=== PATIENT | male | born 1995 | race Caucasian/White ===

== ENCOUNTER 2018-12-18 01:44 | Emergency (ER) | payer SELFPAY ==
[~2018-12-18] VITALS: Ht 180.3 cm; Wt 86.4 kg
[2018-12-18 02:11] VITALS: BP 145/88; Ht 180.3 cm; Wt 86.4 kg
[2018-12-18 03:06] LABS: APPEARANCE CLEAR (CLEAR); BILIRUBIN NEGATIVE (NEGATIVE); COLOR YELLOW (YELLOW); GLUCOSE NEGATIVE (NEGATIVE); KETONE NEGATIVE (NEGATIVE); NITRITE NEGATIVE (NEGATIVE); PH 5.5 (5.0-6.0); PROTEIN NEGATIVE (NEGATIVE); UROBILINOGEN NORMAL (NORMAL)
[2018-12-18] MEDS ORDERED: PERMETHRIN60 GM TOPICAL (03:13)
[2018-12-18] MEDS ORDERED: VISTARIL50 MG PO (03:13)
== END 2018-12-18 03:45 | disposition home or self-care (01) ==
LOC: D.ER 01:44
PROVIDERS: Family Medicine
DX: B86 Scabies (principal); Z20.2 Contact with and (suspected) exposure to infections with a predominantly sexual mode of transmission